=== PATIENT | male | born 2000 | race Caucasian/White ===

== ENCOUNTER 2021-09-12 15:56 | Outpatient (CLI) | payer OTHER, SELFPAY ==
--- NOTE | ~2021-09-12 | XR_ITS ---
EXAMINATION: XR lumbar spine 2-3V DATE: 09/12/2021 16:19 INDICATION: Low back pain. TECHNIQUE: 3 views of lumbar spine standing were obtained. COMPARISON: None. FINDINGS: Bone alignment is normal. Vertebral body heights and intervertebral disc heights are normal . The facet joints are normal. IMPRESSION: 1. Normal lumbar spine. Reviewed, dictated and finalized at location A. TH INSUR[employer] SPECIALIST IMPRESSION: 1. Normal lumbar spine.
== END 2021-09-12 15:57 ==
PROVIDERS: Visit Provider Chiropractor
DX: M54.50 Low back pain, unspecified (principal)
CPT/HCPCS: 72100